=== PATIENT | male | born 1945 | race Caucasian/White ===

== ENCOUNTER 2020-11-08 09:56 | Day surgery (SDC) | payer MEDICARE, OTHER ==
[2020-11-08] MEDS ORDERED: LACTATED RINGERS 1,000 ML IV ONE ×2 (10:18→11:58)
--- NOTE | 2020-11-08 10:48 | ANESTHESIA ---
Pre-Anesthesia VS, & Labs - Diagnosis hx of polyps - Procedure colonoscopy Vital Signs: Temp Pulse Resp BP Pulse Ox 37.1 C 68 15 115/79 97 11/08/20 10:19 11/08/20 10:19 11/08/20 10:19 11/08/20 10:19 11/08/20 10:19 Height: 5 ft 6 in Weight (kg): 61.1 kg Body Mass Index: 21.7 BMI Classification: Healthy weight - NPO >8 hours - Lab Results Lab results reviewed: Yes Home Medications and Allergies Home Medications: Ambulatory Orders Apixaban [Eliquis] 5 mg PO BID 11/07/20 Atorvastatin [Lipitor] 20 mg PO DAILY 11/07/20 Valsartan 320 mg PO DAILY 11/07/20 Diltiazem HCl [Diltiazem 12Hr ER] 180 mg PO DAILY 11/08/20 Fluticasone/Umeclidin/Vilanter [Trelegy Ellipta 200-62.5-25] 1 each IH DAILY 11/08/20 Apixaban [Eliquis] 5 mg PO BID 11/07/20 Atorvastatin [Lipitor] 20 mg PO DAILY 11/07/20 Valsartan 320 mg PO DAILY 11/07/20 Diltiazem HCl [Diltiazem 12Hr ER] 180 mg PO DAILY 11/08/20 Fluticasone/Umeclidin/Vilanter [Trelegy Ellipta 200-62.5-25] 1 each IH DAILY 11/08/20 Allergies/Adverse Reactions: Allergies Allergy/AdvReac Type Severity Reaction Status Date / Time Sulfa (Sulfonamide Allergy Rash Verified 11/08/20 10:31 Antibiotics) Anes History & Medical History - Anesthetic History Anesthesia Complications: reports: No previous complications Family history of Anesthesia Complications: Denies Family history of Malignant Hyperthermia: Denies - Medical History Cardiovascular: reports: Hypertension, High cholesterol Pulmonary: reports: COPD Gastrointestinal: reports: None Urinary: reports: None, Other Musculoskeletal: reports: None Endocrine/Autoimmune: reports: None Skin: reports: Other - Surgical History Eyes Ears Nose Throat (EENT): reports: Other Cardiothoracic: reports: Other Exam General: Alert, Oriented x3, Cooperative Dental: WNL Mouth Openin Fingerbreadth Neck Mobility: Normal Mallampati classification: II Thyromental Distance: 4-6 cm Respiratory: Lungs clear Cardiovascular: Regular rate Plan Anesthesia Type: Total IV Consent for Procedure(s) Verified and Reviewed: Yes Code Status: Attempt Resuscitation ASA classification: 3-Severe systemic disease Is this case an emergency?: No
[2020-11-08] MEDS ORDERED: PROPOFOL 200 MG/20 ML VIAL IVP ONE ×3 (10:53→11:42)
[2020-11-08] MEDS ORDERED: ONDANSETRON 4 MG/2 ML VIAL ONE (11:42)
[2020-11-08 12:45] VITALS: BP 116/67
== END 2020-11-08 09:57 | disposition home or self-care (01) ==
LOC: SDS 09:56 → EDSEX 13:30
PROVIDERS: ATTEND Surgery
PROC: 0DBL8ZZ Excision of Transverse Colon, Via Natural or Artificial Opening Endoscopic (ICD-10-PCS; 2020-11-08)
PROC: 0DBN8ZZ Excision of Sigmoid Colon, Via Natural or Artificial Opening Endoscopic (ICD-10-PCS; 2020-11-08)
PROC: 0DBK8ZZ Excision of Ascending Colon, Via Natural or Artificial Opening Endoscopic (ICD-10-PCS; principal; 2020-11-08 11:00)
DX: R93.3 Abnormal findings on diagnostic imaging of other parts of digestive tract (principal); D12.2 Benign neoplasm of ascending colon; D12.5 Benign neoplasm of sigmoid colon; K63.5 Polyp of colon; K57.30 Diverticulosis of large intestine without perforation or abscess without bleeding; I48.91 Unspecified atrial fibrillation; Z85.820 Personal history of malignant melanoma of skin; J44.9 Chronic obstructive pulmonary disease, unspecified
CPT/HCPCS: 45380; 45385; J7120

== ENCOUNTER 2022-08-19 07:15 | Outpatient (CLI) | payer MEDICARE, OTHER ==
[2022-08-19 12:22] LABS: CC,BF RBC 1000 /mm^3; CC,BF WBC 7320 /mm^3
[2022-08-19 12:23] LABS: BF CLARITY HAZY; BF COLOR YELLOW; BF SOURCE SYNOVIAL
== END 2022-08-19 07:30 | disposition home or self-care (01) ==
LOC: LAB.N 07:15
PROVIDERS: ATTEND Registered Nurse
DX: M25.461 Effusion, right knee (principal)
CPT/HCPCS: 82945; 87070; 87205; 89051; 89060